=== PATIENT | female | born 1950 | race Caucasian/White ===

== ENCOUNTER → 2016-09-13 | Outpatient (CLI) | payer OTHER ==
[~2016-09-13] MED LIST: COUMADIN PO; DIOVAN80 M1 PO; FUROSEMIDE40 MG PO; HUMALOG100 U/M1 SQ; K-DUR20 ME1 PO; LAMISIL250 MG PO; LANTUS100 U/M1 SQ; LANTUS100 UNITS/; LASIX20 MG PO; LIPITOR PO; LOPRESSOR PO; METFORMIN HCL500 M1 PO; PLAVIX PO; POTASSIUM CHLO10 ME1 PO; PRILOSEC20 M1 PO; TYLENOL PM EX-1 EAC2 PO; VITAMIN B-12500 MCG PO
[2016-09-13 09:28] LABS: INR 1.8; PROTHROMBIN TIME (PATIENT) 20.8 SECONDS (9.5-12.4)
== END | disposition home or self-care (01) ==
LOC: SLABONLY 09:00
PROVIDERS: Internal Medicine Cardiovascular Disease
DX: I48.91 Unspecified atrial fibrillation (principal)
CPT/HCPCS: 85610

== ENCOUNTER → 2016-09-13 | Outpatient (CLI) | payer OTHER ==
[2016-09-13 09:36] LABS: ALBUMIN SERUM 3.9 g/dL (3.5-5.0); BILIRUBIN,TOTAL 0.4 mg/dL (0.2-2.0); CALCIUM SERUM 9.3 mg/dL (8.4-10.2); GLOM FILT RATE Estimated 59.1 mL/min (>60); POTASSIUM 4.2 mmol/L (3.5-5.1); PROTEIN TOTAL SERUM 7.3 g/dL (6.0-8.3)
== END | disposition home or self-care (01) ==
LOC: SLABONLY 09:07
PROVIDERS: Internal Medicine Endocrinology, Diabetes & Metabolism
DX: E10.65 Type 1 diabetes mellitus with hyperglycemia (principal); Z79.899 Other long term (current) drug therapy
CPT/HCPCS: 36415; 80053; 83036

== ENCOUNTER → 2016-09-26 | Outpatient (CLI) | payer OTHER ==
[2016-09-26 12:29] LABS: INR 2.5; PROTHROMBIN TIME (PATIENT) 28.3 SECONDS (9.5-12.4)
== END | disposition home or self-care (01) ==
LOC: SLABONLY 09:34
PROVIDERS: Internal Medicine Cardiovascular Disease
DX: I48.91 Unspecified atrial fibrillation (principal)
CPT/HCPCS: 36415; 85610

== ENCOUNTER → 2016-10-10 | Outpatient (CLI) | payer OTHER ==
[2016-10-10 09:28] LABS: PROTHROMBIN TIME (PATIENT) 23.2 SECONDS (9.5-12.4)
== END | disposition home or self-care (01) ==
LOC: SLABONLY 08:32
PROVIDERS: Internal Medicine Cardiovascular Disease
DX: I48.91 Unspecified atrial fibrillation (principal)
CPT/HCPCS: 36415; 85610

== ENCOUNTER → 2016-10-24 | Outpatient (CLI) | payer OTHER ==
[2016-10-24 12:39] LABS: INR 2.6; PROTHROMBIN TIME (PATIENT) 29.7 SECONDS (9.5-12.4)
== END | disposition home or self-care (01) ==
LOC: SLAB 09:32
PROVIDERS: Internal Medicine Cardiovascular Disease
DX: I48.91 Unspecified atrial fibrillation (principal)
CPT/HCPCS: 85610

== ENCOUNTER → 2016-11-01 | Outpatient (CLI) | payer OTHER ==
[2016-11-01 09:25] LABS: INR 1.4; PROTHROMBIN TIME (PATIENT) 15.8 SECONDS (9.5-12.4)
== END | disposition home or self-care (01) ==
LOC: SLABONLY 08:16
PROVIDERS: Internal Medicine Cardiovascular Disease
DX: I48.91 Unspecified atrial fibrillation (principal)
CPT/HCPCS: 36415; 85610

== ENCOUNTER → 2016-11-07 | Outpatient (CLI) | payer OTHER ==
[2016-11-07 13:57] LABS: INR 2.3; PROTHROMBIN TIME (PATIENT) 26.4 SECONDS (9.5-12.4)
== END | disposition home or self-care (01) ==
LOC: SLABONLY 10:35
PROVIDERS: Internal Medicine Cardiovascular Disease
DX: I48.91 Unspecified atrial fibrillation (principal)
CPT/HCPCS: 36415; 85610

== ENCOUNTER → 2016-11-20 | Outpatient (CLI) | payer OTHER ==
[2016-11-20 11:49] LABS: PROTHROMBIN TIME (PATIENT) 65.8 SECONDS (9.5-12.4)
[2016-11-20 12:28] LABS: INR 5.7
== END | disposition home or self-care (01) ==
LOC: SLABONLY 11:07
PROVIDERS: Internal Medicine Cardiovascular Disease
DX: I48.91 Unspecified atrial fibrillation (principal)
CPT/HCPCS: 36415; 85610

== ENCOUNTER → 2016-11-22 | Outpatient (CLI) | payer OTHER ==
[2016-11-22 11:10] LABS: INR 2.3; PROTHROMBIN TIME (PATIENT) 25.1 SECONDS (9.5-12.4)
== END | disposition home or self-care (01) ==
LOC: SLABONLY 08:41
PROVIDERS: Internal Medicine Cardiovascular Disease
DX: I48.91 Unspecified atrial fibrillation (principal)
CPT/HCPCS: 36415; 85610

== ENCOUNTER → 2016-11-28 | Outpatient (CLI) | payer OTHER ==
[2016-11-28 14:10] LABS: INR 1.2; PROTHROMBIN TIME (PATIENT) 13.5 SECONDS (9.5-12.4)
== END | disposition home or self-care (01) ==
LOC: SLABONLY 11:03
PROVIDERS: Internal Medicine Cardiovascular Disease
DX: I48.91 Unspecified atrial fibrillation (principal)
CPT/HCPCS: 36415; 85610

== ENCOUNTER → 2016-12-05 | Outpatient (CLI) | payer OTHER ==
[2016-12-05 12:45] LABS: INR 1.5; PROTHROMBIN TIME (PATIENT) 16.7 SECONDS (9.5-12.4)
== END | disposition home or self-care (01) ==
LOC: SLABONLY 09:54
PROVIDERS: Internal Medicine Cardiovascular Disease
DX: I48.91 Unspecified atrial fibrillation (principal)
CPT/HCPCS: 36415; 85610

== ENCOUNTER → 2016-12-12 | Outpatient (CLI) | payer OTHER ==
[2016-12-12 10:25] LABS: INR 1.9; PROTHROMBIN TIME (PATIENT) 21.1 SECONDS (9.5-12.4)
== END | disposition home or self-care (01) ==
LOC: SLABONLY 08:31
PROVIDERS: Internal Medicine Cardiovascular Disease
DX: Z51.81 Encounter for therapeutic drug level monitoring (principal); I48.91 Unspecified atrial fibrillation; Z79.899 Other long term (current) drug therapy
CPT/HCPCS: 36415; 85610

== ENCOUNTER → 2016-12-21 | Outpatient (CLI) | payer OTHER ==
[2016-12-21 14:26] LABS: INR 2.6; PROTHROMBIN TIME (PATIENT) 29.9 SECONDS (9.5-12.4)
== END | disposition home or self-care (01) ==
LOC: SLAB 11:23
PROVIDERS: Internal Medicine Cardiovascular Disease
DX: Z51.81 Encounter for therapeutic drug level monitoring (principal); I48.91 Unspecified atrial fibrillation; Z79.899 Other long term (current) drug therapy
CPT/HCPCS: 36415; 85610

== ENCOUNTER → 2017-01-07 | Outpatient (CLI) | payer OTHER ==
[2017-01-07 09:58] LABS: INR 2.3; PROTHROMBIN TIME (PATIENT) 25.7 SECONDS (9.5-12.4)
== END | disposition home or self-care (01) ==
LOC: SLAB 08:03
PROVIDERS: Internal Medicine Cardiovascular Disease
DX: Z51.81 Encounter for therapeutic drug level monitoring (principal); I48.91 Unspecified atrial fibrillation; Z79.899 Other long term (current) drug therapy
CPT/HCPCS: 36415; 85610

== ENCOUNTER → 2017-01-25 | Outpatient (CLI) | payer OTHER ==
[2017-01-25 13:28] LABS: INR 2.1; PROTHROMBIN TIME (PATIENT) 23.9 SECONDS (9.5-12.4)
== END | disposition home or self-care (01) ==
LOC: SLAB 09:37
PROVIDERS: Internal Medicine Cardiovascular Disease
DX: Z51.81 Encounter for therapeutic drug level monitoring (principal); I48.91 Unspecified atrial fibrillation; Z79.01 Long term (current) use of anticoagulants
CPT/HCPCS: 36415; 85610

== ENCOUNTER → 2017-02-19 | Outpatient (CLI) | payer OTHER ==
[2017-02-19 11:16] LABS: INR 2.2; PROTHROMBIN TIME (PATIENT) 25.3 SECONDS (9.5-12.4)
== END | disposition home or self-care (01) ==
LOC: SLABONLY 09:53
PROVIDERS: Internal Medicine Cardiovascular Disease
DX: Z51.81 Encounter for therapeutic drug level monitoring (principal); I48.91 Unspecified atrial fibrillation; Z79.01 Long term (current) use of anticoagulants
CPT/HCPCS: 36415; 85610

== ENCOUNTER → 2017-03-08 | Outpatient (CLI) | payer OTHER ==
[2017-03-08 14:54] LABS: BILIRUBIN,TOTAL 0.5 mg/dL (0.2-2.0); BUN/CREATININE RATIO 19.09; CALCIUM SERUM 8.7 mg/dL (8.4-10.2); CREATININE SERUM 1.1 mg/dL (0.6-1.4); GLOM FILT RATE Estimated 52.3 mL/min (>60); POTASSIUM 4.4 mmol/L (3.5-5.1)
[2017-03-08 16:28] LABS: FREE THYROXIN (T4) 0.82 ng/dL (0.58-1.64)
[2017-03-11 07:56] LABS: MICROALB UR (PNL) 0.1 mg/dL (***)
== END | disposition home or self-care (01) ==
LOC: SLABONLY 13:38
PROVIDERS: Internal Medicine Endocrinology, Diabetes & Metabolism
DX: E11.65 Type 2 diabetes mellitus with hyperglycemia (principal); I10 Essential (primary) hypertension; E78.4 Other hyperlipidemia
CPT/HCPCS: 36415; 80053; 80061; 82043; 82570; 83036; 84439; 84443; 85610

== ENCOUNTER → 2017-03-25 | Outpatient (CLI) | payer OTHER ==
[2017-03-25 13:49] LABS: INR 2.3; PROTHROMBIN TIME (PATIENT) 26.1 SECONDS (9.5-12.4)
== END | disposition home or self-care (01) ==
LOC: SLAB 12:22
PROVIDERS: Internal Medicine Cardiovascular Disease
DX: Z51.81 Encounter for therapeutic drug level monitoring (principal); I48.91 Unspecified atrial fibrillation; Z79.01 Long term (current) use of anticoagulants
CPT/HCPCS: 36415; 85610